=== PATIENT | female | born 1950 | race Native Hawaiian/Other Pacific Islander ===

== ENCOUNTER 2017-02-06 08:00 | Outpatient (CLI) | payer BC | END 2017-02-06 09:15 | disposition home or self-care (01) | LOC: MAMMO 08:00 | DX: Z12.31 Encounter for screening mammogram for malignant neoplasm of breast (principal) | CPT/HCPCS: G0202-TC ==

== ENCOUNTER 2018-06-07 08:05 | Outpatient (CLI) | payer OTHER | END 2018-06-07 19:23 | disposition home or self-care (01) | LOC: MAMMO 08:05 | DX: Z12.31 Encounter for screening mammogram for malignant neoplasm of breast (principal) ==

== ENCOUNTER 2019-06-09 09:35 | Outpatient (CLI) | payer OTHER | END 2019-06-09 20:22 | disposition home or self-care (01) | LOC: MAMMO 09:35 | DX: Z13.820 Encounter for screening for osteoporosis (principal); Z12.31 Encounter for screening mammogram for malignant neoplasm of breast; N95.8 Other specified menopausal and perimenopausal disorders ==

== ENCOUNTER 2021-09-29 10:54 | Outpatient (CLI) | payer OTHER | END 2021-09-29 19:13 | disposition home or self-care (01) | LOC: RAD 10:54 | PROVIDERS: ATTEND Family Medicine | DX: M67.441 Ganglion, right hand (principal); M54.17 Radiculopathy, lumbosacral region ==

== ENCOUNTER 2021-10-17 08:56 | Outpatient (CLI) | payer OTHER | END 2021-10-17 19:08 | disposition home or self-care (01) | LOC: MRI 08:56 | PROVIDERS: ATTEND Nurse Practitioner Family | DX: M47.896 Other spondylosis, lumbar region (principal) ==

== ENCOUNTER 2022-04-20 09:48 | Outpatient (CLI) | payer OTHER | END 2022-04-20 21:01 | disposition home or self-care (01) | LOC: RAD 09:48 → RESP 09:48 → RAD 21:01 | PROVIDERS: ATTEND Nurse Practitioner Family | DX: R53.83 Other fatigue (principal) | CPT/HCPCS: 93005 ==

== ENCOUNTER 2022-07-03 08:13 | Outpatient (CLI) | payer OTHER ==
[~2022-07-03] VITALS: Ht 175.3 cm; Wt 78.0 kg
== END 2022-07-03 20:22 | disposition home or self-care (01) ==
LOC: NM 08:13
PROVIDERS: ATTEND Nurse Practitioner Family
DX: R53.83 Other fatigue (principal); Z79.899 Other long term (current) drug therapy
CPT/HCPCS: A9500; J2785

== ENCOUNTER 2022-07-27 10:02 | Outpatient (CLI) | payer OTHER | END 2022-07-27 18:57 | disposition home or self-care (01) | LOC: RAD 10:02 | PROVIDERS: ATTEND Nurse Practitioner Primary Care | DX: R22.41 Localized swelling, mass and lump, right lower limb (principal) ==